=== PATIENT | female | born 1935 | race Caucasian/White ===

== ENCOUNTER 2017-04-29 16:02 | Inpatient (IN) | payer MEDICARE, BC ==
[~2017-04-29] VITALS: Ht 152.4 cm; Wt 44.3 kg
[2017-04-29] MEDS ORDERED: PLEASE ENTER ALLERGIES MC SCH ×2 (16:30)
[2017-04-29] MEDS ORDERED: ASPIRIN 81 MG TABLET CHEW PO ONE ×2 (16:30→17:00)
[2017-04-29] MEDS ORDERED: ASPI-496 PO (16:37)
[2017-04-29] MEDS ORDERED: ASPIRIN 81 MG TABLET CHEW ONE (16:51)
[2017-04-29] MEDS ORDERED: NITROGLYCERIN SINGLE TAB 0.4 MG SL ONE (16:51)
[2017-04-29 16:57] LABS: HEMATOCRIT 44.2 % (34.6-47.8); HEMOGLOBIN 14.5 g/dL (11.7-16.4); WHITE BLOOD COUNT 8.1 x10^3/uL (3.4-10)
[2017-04-29] MEDS: NITROGLYCERIN SINGLE TAB 0.4 MG SL PRN ×2 (16:57→17:10)
[2017-04-29] MEDS ORDERED: SODIUM CHLORIDE FLUSH 10ML SYR IVF ONE (17:00)
[2017-04-29 17:06] LABS: ASPARTATE AMINO TRANSFERASE 14 U/L (15-37); BLOOD UREA NITROGEN 15 mg/dL (7-18)
[2017-04-29 17:12] LABS: IS PT STATUS REG ER OR PRE ER? YES
[2017-04-29] MEDS ORDERED: ONDANSETRON 2MG/ML, 2ML IVPush PRN (19:00)
[2017-04-29] MEDS ORDERED: BISACODYL 10 MG SUPP PR PRN (19:00)
[2017-04-29] MEDS ORDERED: morphine SULFATE 10 MG/ML, 1ML IVPush PRN (19:00)
[2017-04-29] MEDS ORDERED: ENOXAPARIN 40 MG/0.4 ML SQ ONE (19:00)
[2017-04-29] MEDS ORDERED: ACETAMINOPHEN 325 MG TABLET PO PRN (19:00)
[2017-04-29] MEDS ORDERED: hydrALAzine 20 MG/ML, 1ML IVPush PRN (19:00)
[2017-04-29] MEDS ORDERED: NITROGLYCERIN 0.4 MG BOTTLE (25 TABS) SL PRN (19:00)
[2017-04-29] MEDS ORDERED: POLYETHYLENE GLYCOL 17 GM PACKET PO PRN (19:00)
[2017-04-29] MEDS: SODIUM CHLORIDE FLUSH 10ML SYR IVF SCH (21:00)
[2017-04-29 21:13] VITALS: BP 181/92
[2017-04-29] MEDS ORDERED: ALBUTEROL SULFATE 2.5 MG/3 ML NPPB PRN (23:30)
[2017-04-29 23:38] LABS: IS PT STATUS REG ER OR PRE ER? NO
[2017-04-29 23:43] VITALS: BP 144/76
[2017-04-30 01:35] VITALS: BP 124/77
[2017-04-30 05:10] LABS: HEMOGLOBIN 12.9 g/dL (11.7-16.4); WHITE BLOOD COUNT 6.7 x10^3/uL (3.4-10)
[2017-04-30 05:16] LABS: ASPARTATE AMINO TRANSFERASE 19 U/L (15-37); BLOOD UREA NITROGEN 13 mg/dL (7-18)
[2017-04-30 05:34] LABS: IS PT STATUS REG ER OR PRE ER? NO
[2017-04-30 07:32] VITALS: BP 136/64
[2017-04-30] MEDS: SENNA/DOCUSATE TABLET PO SCH (08:38)
[2017-04-30] MEDS: SODIUM CHLORIDE FLUSH 10ML SYR IVF SCH ×2 (08:38→21:05)
[2017-04-30] MEDS ORDERED: ASPIRIN 81 MG TABLET EC PO SCH (09:00)
[2017-04-30] MEDS: SODIUM CHLORIDE 0.9% 1,000 ML IV SCH ×2 (09:48→16:28)
[2017-04-30 10:48] VITALS: BP 143/74
[2017-04-30] MEDS ORDERED: FENTANYL PF 100 MCG/2ML ONE ×3 (11:19→16:28)
[2017-04-30] MEDS ORDERED: MIDAZOLAM 1 MG/ML, 5ML ONE ×2 (11:19→15:21)
[2017-04-30] MEDS ORDERED: TICAGRELOR 90 MG TABLET ONE ×2 (11:20→15:21)
[2017-04-30] MEDS ORDERED: HEPARIN 1,000 UNITS/ML, 10ML ONE ×2 (11:20→15:22)
[2017-04-30] MEDS ORDERED: BIVALIRUDIN 250 MG ONE ×2 (11:20→15:21)
[2017-04-30] MEDS ORDERED: LIDOCAINE 2%, 20ML ONE ×2 (11:20→15:21)
[2017-04-30] MEDS ORDERED: VERAPAMIL 2.5 MG/ML, 2ML ONE (15:21)
[2017-04-30 15:28] VITALS: BP 134/72
[2017-04-30] MEDS ORDERED: SODIUM CHLORIDE 0.9% 1,000 ML IV SCH (16:57)
[2017-04-30] MEDS ORDERED: BIVALIRUDIN 250 MG in DEXTROSE 5% 50 ML IV SCH (16:57)
[2017-04-30] MEDS: TICAGRELOR 90 MG TABLET PO SCH (18:20)
[2017-04-30] MEDS ORDERED: TICAGRELOR 90 MG TABLET PO ONE (18:30)
[2017-04-30 18:49] VITALS: BP 144/85
[2017-04-30 20:34] VITALS: BP 155/75
[2017-04-30] MEDS ORDERED: SIMVASTATIN 40 MG TABLET PO SCH (21:00)
[2017-05-01 02:00] VITALS: BP_SYST 96; BP_SYST 99; BP_DIAS 52; BP_DIAS 56
[2017-05-01 04:17] VITALS: BP 127/65
[2017-05-01 05:27] LABS: BLOOD UREA NITROGEN 12 mg/dL (7-18)
[2017-05-01] MEDS ORDERED: TICA90TA PO (08:35)
[2017-05-01] MEDS ORDERED: ACET325T14 PO (08:35)
[2017-05-01 08:46] VITALS: BP 117/64
[2017-05-01] MEDS: TICAGRELOR 90 MG TABLET PO SCH (08:50)
[2017-05-01] MEDS: SENNA/DOCUSATE TABLET PO SCH (08:50)
[2017-05-01] MEDS: SODIUM CHLORIDE FLUSH 10ML SYR IVF SCH (09:00)
[2017-05-01] MEDS ORDERED: ASPIRIN 81 MG TABLET EC PO SCH (09:00)
[2017-05-01] MEDS ORDERED: PNEUMOCOCCAL 23 VACCINE IM-VACC ONE (11:00)
[2017-05-01] MEDS ORDERED: FLU VACC QS2017-18 (36MOS+) UP/PF 0.5 ML IM-VACC ONE (11:00)
[2017-05-01] MEDS ORDERED: BIVALIRUDIN 250 MG in DEXTROSE 5% 50 ML IV ONE (16:57)
== END 2017-05-01 13:23 | disposition home or self-care (01) | DRG 250 ==
LOC: ED 18:12 → EDIP 18:29 → 5SO 20:45
PROVIDERS: ADMIT Internal Medicine; ATTEND Family Medicine
PROC: 4A023N7 Measurement of Cardiac Sampling and Pressure, Left Heart, Percutaneous Approach (ICD-10-PCS; principal; 2017-04-30)
PROC: 02703ZZ Dilation of Coronary Artery, One Artery, Percutaneous Approach (ICD-10-PCS; 2017-04-30)
PROC: B2121ZZ Fluoroscopy of Single Coronary Artery Bypass Graft using Low Osmolar Contrast (ICD-10-PCS; 2017-04-30)
PROC: B2181ZZ Fluoroscopy of Left Internal Mammary Bypass Graft using Low Osmolar Contrast (ICD-10-PCS; 2017-04-30)
PROC: B2111ZZ Fluoroscopy of Multiple Coronary Arteries using Low Osmolar Contrast (ICD-10-PCS; 2017-04-30)
PROC: B2151ZZ Fluoroscopy of Left Heart using Low Osmolar Contrast (ICD-10-PCS; 2017-04-30)
DX: I21.4 Non-ST elevation (NSTEMI) myocardial infarction (principal); I50.43 Acute on chronic combined systolic (congestive) and diastolic (congestive) heart failure; I25.82 Chronic total occlusion of coronary artery; I34.0 Nonrheumatic mitral (valve) insufficiency; J44.9 Chronic obstructive pulmonary disease, unspecified; I25.10 Atherosclerotic heart disease of native coronary artery without angina pectoris; I10 Essential (primary) hypertension; E78.5 Hyperlipidemia, unspecified; I16.0 Hypertensive urgency; Z66 Do not resuscitate; Z82.49 Family history of ischemic heart disease and other diseases of the circulatory system; Z87.891 Personal history of nicotine dependence; Z95.1 Presence of aortocoronary bypass graft; Z90.710 Acquired absence of both cervix and uterus; Z88.8 Allergy status to other drugs, medicaments and biological substances
CPT/HCPCS: 36415; 71010; 80048; 80053; 80061; 82040; 83880; 84439; 84443; 84484; 85025; 85379; 90686; 90732; 92920; 93005; 93306; 93459; 99156; 99157; 99285; C1760; C1769; C1894; J0583; J1644; J2250; J3010; J3490; 92928; C1725; C1874; C1887; J7030; Q9967